=== PATIENT | female | born 1955 | race African-American/Black ===

== ENCOUNTER 2023-10-01 22:56 | Emergency (ER) | payer MEDICARE, MEDICAID ==
[~2023-10-01] VITALS: Ht 152.4 cm; Wt 62.0 kg
[~2023-10-01 22:56] MED LIST: AMLO5TAB4; [UNRECOGNIZED DRUG - CODE]
[2023-10-01 23:08] VITALS: BP 131/82; PULSE 98; RESP 18; TEMP 98.1; O2SAT 100
== END 2023-10-02 01:25 | disposition home or self-care (01) ==
LOC: ER 22:56
DX: M54.50 Low back pain, unspecified (principal); J44.9 Chronic obstructive pulmonary disease, unspecified; I10 Essential (primary) hypertension
CPT/HCPCS: 99283

== ENCOUNTER 2024-09-06 14:45 | Emergency (ER) | payer MEDICARE, MEDICAID ==
[~2024-09-06] VITALS: Ht 162.6 cm; Wt 106.5 kg
[~2024-09-06 14:45] MED LIST changes: -AMLO5TAB4; +AMLO5TAB5
[2024-09-06 14:47] VITALS: BP 134/81; RESP 17; TEMP 36.7; O2SAT 97
[2024-09-06 14:49] VITALS: PULSE 96; O2SAT 80
[2024-09-06 15:43] LABS: BASOPHILS % 0.6 % (0.0-2.0); HEMATOCRIT. 36.3 % (36.0-48.0); HEMOGLOBIN. 11.6 g/dL (12.0-16.0); MEAN CORPUSCULAR HEMOGLOBIN 28.7 pg (28.0-32.0); MEAN CORPUSCULAR HGB CONC 31.9 g/dL (31.0-37.0); MEAN CORPUSCULAR VOLUME 89.9 fL (81.0-99.0); MEAN PLATELET VOLUME 7.8 fl (7.4-10.4); MONOCYTES % 6.8 % (2.0-8.0); NEUTROPHILS % 76.6 % (40.0-76.0); PLATELET 275 x1000/uL (130-400); RED BLOOD CELL COUNT 4.03 mill/uL (4.2-5.4); RED CELL DISTRIBUTION WIDTH 14.3 % (11.6-14.6); WHITE BLOOD COUNT 7.9 x1000/uL (4.5-11.0)
[2024-09-06 15:50] LABS: CHLORIDE 104 mEq/L (98-107); POTASSIUM 4.2 mEq/L (3.5-5.1); SODIUM 140 mEq/L (136-145)
[2024-09-06 15:51] LABS: CARBON DIOXIDE 31 mEq/L (21-32)
[2024-09-06 15:52] LABS: CALCIUM 9.9 mg/dL (8.7-10.4)
[2024-09-06 15:56] LABS: CREATININE 0.9 mg/dL (0.6-1.0); GLUCOSE 105 mg/dL (70-105); UREA NITROGEN BLOOD 11 mg/dL (9-23)
[2024-09-06 16:17] LABS: TROPONIN I HIGH SENSITIVITY < 4 ng/L (3.0-34)
== END 2024-09-06 17:07 | disposition home or self-care (01) ==
LOC: ER 14:45
DX: R07.89 Other chest pain (principal); I10 Essential (primary) hypertension; Z88.5 Allergy status to narcotic agent
CPT/HCPCS: 36415; 71045; 80048; 83880; 84484; 85025; 93005; 99291

== ENCOUNTER 2024-12-24 01:23 | Emergency (ER) | payer MEDICARE, MEDICAID ==
[~2024-12-24] VITALS: Ht 162.6 cm; Wt 124.8 kg
[2024-12-24 01:55] VITALS: O2SAT 100
[2024-12-24 03:26] LABS: BASOPHILS % 0.6 % (0.0-2.0); EOSINOPHILS % 1.2 % (0.0-5.0); HEMATOCRIT. 31.3 % (36.0-48.0); HEMOGLOBIN. 10.5 g/dL (12.0-16.0); LYMPHOCYTES % 17.2 % (20.0-50.0); MEAN PLATELET VOLUME 7.8 fl (7.4-10.4); MONOCYTES % 6.6 % (2.0-8.0); NEUTROPHILS % 74.4 % (40.0-76.0); PLATELET 261 x1000/uL (130-400); RED BLOOD CELL COUNT 3.53 mill/uL (4.2-5.4); RED CELL DISTRIBUTION WIDTH 14.4 % (11.6-14.6)
[2024-12-24 03:38] LABS: CREATININE 1.0 mg/dL (0.6-1.0); INR 1.0; UREA NITROGEN BLOOD 11 mg/dL (9-23)
[2024-12-24 03:40] LABS: ASPARTATE AMINOTRANSFERASE 11 IU/L (<34)
[2024-12-24 03:41] LABS: BILIRUBIN TOTAL 0.3 mg/dL (0.1-1.0); PROTEIN TOTAL 6.2 g/dL (6.0-8.3)
[2024-12-24 04:38] VITALS: BP 151/87; PULSE 68; RESP 20; TEMP 37.1; O2SAT 98
== END 2024-12-24 04:43 | disposition home or self-care (01) ==
LOC: ER 01:23
DX: R04.0 Epistaxis (principal); I10 Essential (primary) hypertension; Z88.5 Allergy status to narcotic agent; Z79.899 Other long term (current) drug therapy
CPT/HCPCS: 36415; 80053; 85025; 99283; A4606